=== PATIENT | male | born 1985 | race Caucasian/White ===

== ENCOUNTER 2022-06-06 15:43 | Emergency (ER) | payer SELFPAY ==
[~2022-06-06] VITALS: Ht 170.2 cm; Wt 77.0 kg
[2022-06-06] MEDS ORDERED: TETANUS, DIPHTHERIA, PERTUSSIS VAC/PF 0.5ML (>10YR OLD) IM ONE (16:30)
[2022-06-06] MEDS ORDERED: OXYCODONE HCL/ACETAMINOPHEN 5/325MG TABLET PO ONE (16:30)
[2022-06-06] MEDS ORDERED: IBUPROFEN 600MG TABLET PO ONE (16:30)
[2022-06-06 16:41] VITALS: BP 177/87
[2022-06-06] MEDS ORDERED: BACITRACIN ZINC OINT UDPKT TOP ONE (17:45)
[2022-06-06] MEDS ORDERED: NAPR-681 MT (18:29)
[2022-06-06] MEDS ORDERED: AMOX1TAB16 MT (18:29)
== END 2022-06-06 18:45 | disposition home or self-care (01) ==
LOC: ER 15:43
DX: S61.412A Laceration without foreign body of left hand, initial encounter (principal); X58.XXXA Exposure to other specified factors, initial encounter; Y93.89 Activity, other specified; Y92.89 Other specified places as the place of occurrence of the external cause; Y99.8 Other external cause status
CPT/HCPCS: 73110; 73130; 90471; 90715; 99284